=== PATIENT | female | born 1985 | race Caucasian/White ===

== ENCOUNTER 2020-07-08 16:21 | Observation (INO) | payer SELFPAY ==
[~2020-07-08] VITALS: Ht 154 cm; Wt 66.7 kg
[2020-07-08 17:00] VITALS: BP 116/75
== END 2020-07-08 17:55 | disposition home or self-care (01) ==
LOC: 4S 16:21
PROVIDERS: ADMIT Obstetrics & Gynecology; ATTEND Obstetrics & Gynecology
DX: O62.9 Abnormality of forces of labor, unspecified (principal); Z3A.37 37 weeks gestation of pregnancy
CPT/HCPCS: 59025; 99219

== ENCOUNTER 2020-07-14 11:05 | Inpatient (IN) | payer SELFPAY ==
[~2020-07-14] VITALS: Ht 160 cm; Wt 66.7 kg
[2020-07-14] MEDS ORDERED: PREN-217 PO (15:07)
[2020-07-14] MEDS: RINGERS SOLUTION,LACTATED 1,000 ML IV SCH ×3 (15:10→22:43)
[2020-07-14] MEDS ORDERED: CITRIC ACID/SODIUM CITRATE 30 ML SOLUTION UDCUP PO ONE (17:30)
[2020-07-14] MEDS ORDERED: METOCLOPRAMIDE HCL 5 MG/ML 2 ML VIAL IVP ONE (17:30)
[2020-07-14] MEDS ORDERED: RINGERS SOLUTION,LACTATED 1,000 ML IV ONE (17:30)
[2020-07-14 17:58] LABS: COVID AG,FIA SOURCE NASOPHARYNGEAL
[2020-07-14 18:00] LABS: BASOPHILS % (AUTO) 0.4 % (0.0-2.0); EOSINOPHILS % (AUTO) 0.4 % (1.0-6.0); HEMOGLOBIN 12.4 g/dL (12.0-16.0); LYMPHOCYTES # (AUTO) 1.6 K/uL (1.0-4.8); LYMPHOCYTES % (AUTO) 15.5 % (22.0-44.0); MEAN CORPUSCULAR HEMOGLOBIN 30.9 pg (26.0-34.0); MEAN CORPUSCULAR HGB CONC 34.5 G/dL (31.0-37.0); MEAN CORPUSCULAR VOLUME 90 fL (80-100); MONOCYTES # (AUTO) 0.4 K/uL (0.1-1.0); MONOCYTES % (AUTO) 3.8 % (2.0-9.0); NEUTROPHILS # (AUTO) 8.3 K/uL (1.8-7.7); NEUTROPHILS % (AUTO) 79.9 % (40.0-70.0); PLATELET COUNT (AUTO)-OB 151 K/uL (150-450); RED BLOOD CELL COUNT(AUTO) 4.01 MIL/uL (4.00-5.20); RED CELL DISTRIBUTION WIDTH 13.3 % (11.5-14.5)
[2020-07-14 18:18] VITALS: BP 105/63
[2020-07-14 18:25] VITALS: BP 105/63
[2020-07-14] MEDS ORDERED: FentaNYL CITRATE PF 100 MCG/2 ML VIAL ONE (18:50)
[2020-07-14] MEDS ORDERED: MORPHINE SULFATE/PF 1 MG/ML 10 ML AMP ONE (18:50)
[2020-07-14] MEDS ORDERED: ACETAMINOPHEN 1000 MG/ISO-OSM 100 ML IV ONE (18:51)
[2020-07-14] MEDS ORDERED: BUPIVACAINE HCL/DEX-WATER/PF 0.75% 2 ML AMP ITH ONE (18:51)
[2020-07-14] MEDS ORDERED: LANOLIN 7 GM OINTMENT TP PRN (19:00)
[2020-07-14] MEDS ORDERED: OxyCODONE HCL/ACETAMINOPHEN 5-325 MG TABLET PO PRN ×2 (19:00)
[2020-07-14] MEDS ORDERED: OXYTOCIN 30 UNITS/LACT RINGERS 500 ML IV ONE (19:00)
[2020-07-14] MEDS ORDERED: MORPHINE SULFATE 10 MG/ML SYRINGE IVP PRN (19:15)
[2020-07-14] MEDS ORDERED: DiphenhydrAMINE HCL 50 MG/ML VIAL IVP PRN (19:15)
[2020-07-14] MEDS ORDERED: NALBUPHINE HCL 10 MG/ML VIAL IVP PRN ×2 (19:15)
[2020-07-14] MEDS ORDERED: FentaNYL CITRATE PF 100 MCG/2 ML VIAL IVP PRN ×2 (19:15→19:30)
[2020-07-14] MEDS ORDERED: ONDANSETRON HCL 4 MG/2 ML VIAL IVP PRN ×2 (19:15→19:30)
[2020-07-14] MEDS ORDERED: NALOXONE HCL 0.4 MG/ML VIAL IVP PRN (19:15)
[2020-07-14] MEDS ORDERED: OXYGEN THERAPY IH SCH ×2 (20:00)
[2020-07-15] MEDS ORDERED: CALC-1038 PO (00:20)
[2020-07-15] MEDS: KETOROLAC TROMETHAMINE 30 MG/ML VIAL IVP SCH ×2 (00:44→06:37)
[2020-07-15] MEDS ORDERED: ACETAMINOPHEN 1000 MG/ISO-OSM 100 ML IV SCH (01:00)
[2020-07-15] MEDS: RINGERS SOLUTION,LACTATED 1,000 ML IV SCH (06:12)
[2020-07-15 07:16] LABS: BASOPHILS % (AUTO) 0.1 % (0.0-2.0); EOSINOPHILS % (AUTO) 0 % (1.0-6.0); HEMATOCRIT 29.1 % (36-46); LYMPHOCYTES # (AUTO) 1.5 K/uL (1.0-4.8); LYMPHOCYTES % (AUTO) 11.4 % (22.0-44.0); MEAN CORPUSCULAR HEMOGLOBIN 30.9 pg (26.0-34.0); MEAN CORPUSCULAR HGB CONC 34.2 G/dL (31.0-37.0); MEAN CORPUSCULAR VOLUME 90 fL (80-100); MONOCYTES # (AUTO) 0.5 K/uL (0.1-1.0); NEUTROPHILS # (AUTO) 10.8 K/uL (1.8-7.7); NEUTROPHILS % (AUTO) 84.5 % (40.0-70.0); PLATELET COUNT (AUTO)-OB 149 K/uL (150-450); RED BLOOD CELL COUNT(AUTO) 3.23 MIL/uL (4.00-5.20)
[2020-07-15] MEDS: MAGNESIUM HYDROXIDE SUSPENSION 30 ML UDCUP PO SCH ×2 (09:26→21:04)
[2020-07-15] MEDS: IBUPROFEN 800 MG TABLET PO PRN (21:05)
[2020-07-16] MEDS: IBUPROFEN 800 MG TABLET PO PRN ×2 (02:33→16:02)
[2020-07-16] MEDS ORDERED: DEXAMETHASONE SOD PHOS 4 MG/ML VIAL IVP ONE (06:33)
[2020-07-16] MEDS ORDERED: ONDANSETRON HCL 4 MG/2 ML VIAL IVP ONE (06:33)
[2020-07-16] MEDS ORDERED: EPHEDrine SULFATE 50 MG/ML VIAL IM ONE (06:33)
[2020-07-16] MEDS ORDERED: OXYTOCIN 10 UNITS/ML VIAL IM ONE (06:33)
[2020-07-16] MEDS: MAGNESIUM HYDROXIDE SUSPENSION 30 ML UDCUP PO SCH ×2 (11:01→20:47)
[2020-07-17] MEDS: IBUPROFEN 800 MG TABLET PO PRN (00:04)
[2020-07-17] MEDS ORDERED: DOCU-275 PO (08:42)
[2020-07-17] MEDS ORDERED: IBUP-2071 PO (08:42)
[2020-07-17] MEDS ORDERED: ACET-3385 PO (08:43)
== END 2020-07-17 10:30 | disposition home or self-care (01) | DRG 788 ==
LOC: 4S 11:05 → OBSVTOIN 17:04 → 4S 23:02
PROVIDERS: ADMIT Obstetrics & Gynecology; ATTEND Obstetrics & Gynecology
PROC: 10D00Z1 Extraction of Products of Conception, Low, Open Approach (ICD-10-PCS; principal; 2020-07-14)
DX: O34.211 Maternal care for low transverse scar from previous cesarean delivery (principal); Z3A.38 38 weeks gestation of pregnancy; Z37.0 Single live birth; Z20.822 Contact with and (suspected) exposure to COVID-19
CPT/HCPCS: 86850; 86900; 86901; 86923; 87081; 87426; 99219; J0131; J0690; J1100; J1885; J2405; J2590; J2765; J3010; J3490; J7120